=== PATIENT | female | born 1960 | race African-American/Black ===

== ENCOUNTER → 2019-02-20 | Outpatient (CLI) | payer OTHER ==
[~2019-02-20] VITALS: Ht 170.2 cm; Wt 98.3 kg
[~2019-02-20] MED LIST: CLARITIN 1010 MG/TAB PO; MAG-OX 400400 MG/TAB PO; NEURONTIN600 MG/TAB PO; PRILOSEC 20MG20 MG PO; PROAIR HFA0.09 MG/AC; TYLENOL 325MG325 MG PO
[2019-02-20 06:44] VITALS: BP 159/100; PULSE 73
[2019-02-20 09:02] VITALS: BP 173/100; PULSE 72
[2019-02-20 09:10] VITALS: BP 158/90; PULSE 84
[2019-02-20 09:11] VITALS: BP 162/94; PULSE 81
[2019-02-20 09:12] VITALS: BP 155/91; PULSE 75
== END ==
LOC: COL.CARD 06:30
DX: Z01.818 Encounter for other preprocedural examination (principal)
CPT/HCPCS: A9500

== ENCOUNTER → 2021-08-29 | Outpatient (CLI) | payer OTHER | LOC: MHCPAIN 14:09 | DX: M47.816 Spondylosis without myelopathy or radiculopathy, lumbar region (principal); M53.3 Sacrococcygeal disorders, not elsewhere classified; M48.062 Spinal stenosis, lumbar region with neurogenic claudication; M54.16 Radiculopathy, lumbar region | CPT/HCPCS: G0463 ==

== ENCOUNTER → 2021-09-04 | Outpatient (CLI) | payer OTHER | LOC: MHCPAIN 11:01 | DX: M47.816 Spondylosis without myelopathy or radiculopathy, lumbar region (principal); M53.3 Sacrococcygeal disorders, not elsewhere classified; M54.16 Radiculopathy, lumbar region | CPT/HCPCS: J1100; Q9967 ==

== ENCOUNTER → 2021-09-18 | Outpatient (CLI) | payer OTHER | LOC: MHCPAIN 13:43 | DX: M47.896 Other spondylosis, lumbar region (principal); M54.17 Radiculopathy, lumbosacral region; M48.062 Spinal stenosis, lumbar region with neurogenic claudication; M53.3 Sacrococcygeal disorders, not elsewhere classified | CPT/HCPCS: G0463 ==